=== PATIENT | male | born 1990 | race Caucasian/White ===

== ENCOUNTER 2016-07-05 12:50 | Day surgery (SDC) | payer OTHER ==
[~2016-07-05] VITALS: Ht 170.2 cm; Wt 58.3 kg
[2016-07-05] VITALS (8 sets, daily range): BP systolic 109–123; BP diastolic 51–76; PULSE 62–70; RESP 10–16; O2SAT 98–100
[~2016-07-05 12:50] MED LIST: CeFAZolin Inj 2 GM in IV Premix 1 EACH IV ONE; FLUO20TA28 PO
[2016-07-05] MEDS ORDERED: fentaNYL-PF 50 mCg/mL 2 mL Inj ONE (12:51)
[2016-07-05] MEDS ORDERED: Dexamethasone 4 mg/mL Inj ONE (12:51)
[2016-07-05] MEDS ORDERED: Ondansetron 2 mg/mL 2 mL Inj ONE (12:51)
[2016-07-05] MEDS ORDERED: Propofol 10,000 mCg/mL 20 mL Inj ONE (12:51)
[2016-07-05] MEDS: Lactated Ringer's 1,000 ML IV SCH ×2 (12:58→14:20)
[2016-07-05] MEDS ORDERED: CeFAZolin Inj 2 gm / 50mL D5W IV ONE (13:02)
[2016-07-05] MEDS ORDERED: Lactated Ringer's 1,000 ML IV SCH (14:17)
[2016-07-05] MEDS ORDERED: Lactated Ringer's 500 ML IV PRN (14:17)
--- NOTE | 2016-07-05 14:17 | PCM.HPANE ---
Patient Data Surgeon Admitting Provider: Attending Provider:Jr Faye MD Primary Care Physician:Coreen Queen Other Provider:Mateus Kay Anesthesia Reason for Visit Epidermal Cyst Ht/WT & BMI Height (Feet): 5 Height (Inches): 7 Weight (Kilograms): 58.3 Body Mass Index 20.00 Allergies Coded Allergies: No Known Allergies (Unverified , 07/04/16) Past Anesthesia History Anesthesia History: Denies:: Fam Anesthesia Reaction, Fam Malignant Hypertherm Diabetes History Hx Diabetes?: No MRSA MRSA: No Medications Home Meds Incl Beta Fern: No Reported Medications Fluoxetine 20 Mg [id number] Mg PO DAILY Ref 0 07/04/16 History History of ENT Problems?: No Hx of Heart Problems?: No Cardiovascular History: Denies:: Heart Murmur Hypertension Hx of Respiratory Problem?: No Respiratory History: Denies:: Use of C-PAP Machine Hx Neurologic Problems?: No Hx of GI Problems?: No Hx of Problems?: No Male Hx: Denies:: Prostate Problems Scrotal Mass Testicular Surgery Skin History: Denies:: History Skin Disorders? Pressure Ulcers Hx Musculoskeletal Problems?: Yes Hx of Psycho/Social Problems?: Yes Psycho Social History: Positive for:: Anxiety Hx Depression Hx Surgeries?: No Hx Any Other Health Problems?: No Other History: Denies:: Cancer Endocrine Disease Hospitalization Thyroid Disease Hx Diabetes: No Hx Alcohol Use: YesAlcoholic Drinks Per Day: 4-5 BEERS/DAYHave You Smoked inLast 12 mo: YesApprox How Many Cigarettes/day: 1 PPD X 15YRS Stop/Bang S-Snoring: Do You Snore Loudly: No T-Tired: feel tired, fatigued: No O-Obsered: Observed not breath: No P-Blood Pressure: treated: No B- Body Mass Index > 35 kg/m2: No A- Age over 50: No N- Neck Large Circumference: No G- Gender Male: Yes HARRIET Total Score: 1 Risk Assessment Category Category 1A: Patient has history of documented sleep apnea, and HAS NOT received any narcotic, sedative or anesthesia administration during this stay. Category 1B: Patient has history of documented sleep apnea, and HAS received any narcotic , sedative or anesthesia administration during this stay Category 2: Patient has SUSPECTED Obstructive Sleep Apnea, and HAS received any narcotic , sedative or anesthesia administration during this stay. Category 3: Patient has SUSPECTED Obstructive Sleep Apnea and HAS NOT received narcotic, sedative or anesthesia administration during this stay. Category 4: Outpatient in Procedural Areas with known sleep apnea or who screen positive for High Risk via the STOP/BANG questionnaire. Exam Exam Vital Signs Vital Signs Date Time Temp Pulse Resp B/P Pulse Ox O2 Delivery O2 Flow Rate FiO2 07/05/16 13:08 36.0 63 16 123/62 100 Room Air General Appearance: Alert, Oriented X3, Cooperative, No Acute Distress HEENT/AIRWAY: MP 2 Lungs: Normal Air Movement Heart: Exam Unremarkable Meds/Labs/Diagnostics Admission Meds Current Medications Lactated Ringer's (Lr) 1,000 ml @ 120 mls/hr [id number] IV Last administered on t 12:58; Start 07/05/16 at 05:00; Stop 07/05/16 at 13:19; Status DC Plan Impression Patient chart reviewed, patient interviewed and anesthestic plan with risks, benefits, and alternatives discussed, and informed consent obtained. NPO Status: 07/04/16 Compa Muñoz MD Jul 05, 2016 14:17
[2016-07-05] MEDS ORDERED: EPHEDrine Sulfate 50 mg/mL Inj IVPUSH PRN (14:20)
[2016-07-05] MEDS ORDERED: fentaNYL-PF 50 mCg/mL 2 mL Inj IVPUSH PRN (14:20)
[2016-07-05] MEDS ORDERED: Ondansetron 2 mg/mL 2 mL Inj IVPUSH PRN (14:20)
[2016-07-05] MEDS ORDERED: HYDROmorphone 1 mg/mL Inj IVPUSH PRN (14:20)
[2016-07-05] MEDS ORDERED: Phenylephrine 10,000 mCg/mL Inj IVPUSH PRN (14:20)
[2016-07-05] MEDS ORDERED: Dexamethasone 4 mg/mL Inj IVPUSH PRN (14:20)
[2016-07-05] MEDS ORDERED: MetoCLOpramide 5 mg/mL 2 mL Inj IVPUSH PRN (14:20)
[2016-07-05] MEDS ORDERED: Bupivacaine-MPF 0.25%/EPI 30 mL Inj INJ ONE (14:45)
[2016-07-05] MEDS ORDERED: Bacitracin Ointment Packet TOPICAL ONE (14:53)
--- NOTE | 2016-07-05 15:18 | PCM.ANEP1 ---
Post Anesthesia Phase 1 PACU Phase 1 Assessment Vital Signs Vital Signs Date Time Temp Pulse Resp B/P Pulse Ox O2 Delivery O2 Flow Rate FiO2 07/05/16 13:08 36.0 63 16 123/62 100 Room Air Anesthetic Administered: GA Level of Alertness: Awake, talking MARCELINO's with Equal Strength: Yes Pain: No Nausea or Vomiting: No Oxygen Delivery: Room Air Lungs: Normal Air Movement Dermatome Level: Full Sensation Compa Muñoz MD Jul 05, 2016 15:17
--- NOTE | 2016-07-05 15:18 | PCM.ANEP2 ---
Post Anesthesia Evaluation ASA/CMS Post Anesthesia VS in Patient's Normal Range?: Yes Resp Stable; Airway Patent?: Yes CV Function & Hydration Stable: Yes Mental Status Recovered?: Yes Pain control Satisfactory?: Yes N/V Control Satisfactory?: Yes Compa Muñoz MD Jul 05, 2016 15:18
--- NOTE | 2016-07-07 14:13 | PATH ---
SURGICAL PATHOLOGY Attending Physician:Jr Faye CASE STATUS: Signed Out PATIENT NAME: GRIESL BARKER PID: [id number] : 1990 DATE COLLECTED:07/05/2016 00:00 SPECIMEN: 1: Skin, Cyst 2: Skin, Cyst CLINICAL HISTORY: EPIDERMAL CYST 1). LEFT MEDIAL CHEEK CYST 2). LEFT LATERAL CHEEK CYST FINAL DIAGNOSIS: 1.LEFT MEDIAL CHEEK CYST: BENIGN EPIDERMAL CYST, NEGATIVE FOR ATYPIA. 2.LEFT LATERAL CHEEK CYST: BENIGN EPIDERMAL CYST, NEGATIVE FOR ATYPIA. ICD10 CODE L72.0 GROSS DESCRIPTION: The specimen is received in two formalin filled containers labeled with the patient's name. 1). The specimen is sublabeled "medial left cheek cyst" and consists of a hubbard-corley friable portion of tissue which measures 0.6 0.5 x 0.6 CM. The specimen is inked blue. The specimen is bisected and entirely submitted in cassette 1A. 2). The specimen is sublabeled "lateral left cheek cyst" and consists of a hubbard-corley portion of tissue which measures 1.0 x 1.0 x 1.0 CM. The specimen is inked blue. The specimen is trisected and entirely submitted in cassette 2A. 07/06/2016 [facility] MICRO DESCRIPTION: See diagnosis. ICD-9 CODES: CPT CODES: 1: 27732 2: 46037 Electronically Signed Out Roberto Frey MD [facility] [address] [facility], [place] [address] Technical component performed at [facility], [facility], [facility] [address], [place], [address]
--- NOTE | 2016-07-07 19:53 | OP ---
[address] [address] OPERATIVE REPORT PATIENT: GRISEL BARKER : 1990 MR#: [id number] ADMIT: 07/05/2016 JOB ID: [id number] DATE OF SURGERY: 07/05/2016 PREOPERATIVE DIAGNOSIS(ES): Left cheek mass x2. POSTOPERATIVE DIAGNOSIS(ES): Left cheek mass x2. PROCEDURE: 1. Excision of left lateral cheek subcutaneous mass,, diameter 1 cm. 2. Layered closure of left lateral cheek defect. Total length of layered closure 1.3 cm. 3. Excision of left medial cheek subcutaneous mass, 7 mm. 4. Layered closure of left medial cheek defect. Total length of layered closure 1 cm. SURGEON: Jr Faye MD. NURSE OUTREACH CASE MANAGER: None. ANESTHESIA: General anesthesia. COMPLICATIONS: None apparent. ESTIMATED BLOOD LOSS: Minimal. SPECIMEN: 1. Left lateral cheek mass to Pathology. 2. Left medial cheek mass to Pathology. INDICATIONS FOR PROCEDURE: This is a 26-year-old male patient with two slowly enlarging masses on his left cheek. At this point, excision is indicated for symptom relief and for tissue diagnosis. PROCEDURE AND FINDINGS: The patient was identified in the preoperative area and the surgical site was marked. I marked the border of the two masses. The patient was then taken back to the operating room and placed supine on the operating table. Appropriate time-outs were taken. General anesthesia was induced smoothly. The patient was then prepped and draped in the usual sterile manner. Local anesthesia was infiltrated to the surgical site consisting of 0.25% Marcaine and epinephrine. An ellipse was then made over the lateral left cheek mass which was larger. The ellipse was designed over the center of the mass and to include what appeared to be a punctum. Incision was then made through the skin, down through the dermis where I encountered a large epidermal inclusion cyst. The cyst was then bluntly and sharply dissected away from the surrounding tissue with a pair of tenotomy scissors. This was then passed off to Pathology as a specimen. The incision was then reapproximated with a layer of 5-0 Monocryl deep dermal suture, followed by 5-0 Prolene simple running suture. The cyst measured slightly over 1 cm. The length of layer closure was 1.5 cm. I then turned my attention to the medial cheek cyst which as smaller. Again, an ellipse was then designed over the central portion of the cyst to include what appeared to be a punctum. Incision was then deepened down through the dermis onto the epidermal inclusion cyst. The cyst was then dissected free from the surrounding soft tissue and passed off to Pathology as a specimen. The diameter of the cyst was approximately 0.7 cm. The defect was then reapproximated, first with a layer of 5-0 Monocryl deep dermal suture, followed by 5-0 Prolene simple running suture. Total length of layered closure was 1 cm. The patient tolerated the procedure well. Needle count, sponge count, instrument counts were correct at the end of the procedure. The patient was extubated and transported to recovery in stable condition.
== END 2016-07-05 23:59 | disposition home or self-care (01) ==
LOC: SAS 12:50
PROVIDERS: ATTEND Plastic Surgery
DX: L72.0 Epidermal cyst (principal); R22.0 Localized swelling, mass and lump, head; F41.9 Anxiety disorder, unspecified; F32.9 Major depressive disorder, single episode, unspecified; F17.210 Nicotine dependence, cigarettes, uncomplicated
CPT/HCPCS: 11441; 12051; 88304; J0690; J1100; J2250; J2405; J3010; J7120